=== PATIENT | male | born 1980 | race Two or more races ===

== ENCOUNTER 2020-02-13 20:29 | Inpatient (IN) | payer OTHER ==
[~2020-02-13] VITALS: Ht 193 cm; Wt 106.6 kg
[2020-02-13] MEDS ORDERED: LIDOCAINE VISCOUS 2% UD 15 ML UDC ONE (20:43)
[2020-02-13] MEDS ORDERED: MAG HYDROX/AL HYDROX/SIMETH 30 ML UDC ONE (20:43)
[2020-02-13] MEDS ORDERED: ONDANSETRON HCL/PF 4 MG/2 ML VIAL ONE ×3 (20:43→22:55)
[2020-02-13] MEDS ORDERED: MORPHINE SULFATE INJ 4 MG/ML DISP.SYRIN ONE ×2 (20:44→21:29)
--- NOTE | 2020-02-13 20:50 | NUR ---
URINE AND LABS SENT.
--- NOTE | 2020-02-13 20:55 | NUR ---
PT AAOX4. AMBULATORY C/O RUQ PAIN 10/10 SINCE THE MORNING. PT STATED HE HAD DIARRHEA AMD VOMITTED. PLACED ON MONITOR AND PULSE OX. VSS. PA AT BEDSIDE FOR EVAL. WILL CONTINUE TO MONITOR.
[2020-02-13] MEDS ORDERED: LIDOCAINE VISCOUS 2% UD 15 ML UDC MM ONE (21:00)
[2020-02-13] MEDS ORDERED: IV NS 0.9% 1,000 ML BAG IV ONE ×2 (21:00→21:30)
[2020-02-13] MEDS ORDERED: ONDANSETRON HCL/PF 4 MG/2 ML VIAL IVP ONE ×2 (21:00→21:30)
[2020-02-13] MEDS ORDERED: MORPHINE SULFATE INJ 2 MG/ML DISP.SYRIN IV ONE ×2 (21:00→21:30)
[2020-02-13] MEDS ORDERED: MAG HYDROX/AL HYDROX/SIMETH 30 ML UDC PO ONE (21:00)
[2020-02-13] MEDS ORDERED: PANTOPRAZOLE 40 MG VIAL ONE (21:29)
[2020-02-13] MEDS ORDERED: PANTOPRAZOLE 40 MG VIAL IV ONE (21:30)
[2020-02-13 21:39] LABS: BASOPHILS # (AUTO) 0.2 /CMM (0.0-0.2); BASOPHILS % (AUTO) 0.9 % (0.0-2.0); EOSINOPHILS % (AUTO) 0.3 % (0.0-6.0); HEMATOCRIT 55 % (39-51); HEMOGLOBIN 18.7 g/dL (13.5-17.5); LYMPHOCYTES # (AUTO) 2.5 /CMM (0.8-4.8); LYMPHOCYTES % (AUTO) 13.4 % (20.0-44.0); MEAN CORPUSCULAR HGB CONC 34 g/dl (31.0-36.0); MEAN CORPUSCULAR VOLUME 91 fL (80-96); MONOCYTES # (AUTO) 0.7 /CMM (0.1-1.30); MONOCYTES % (AUTO) 3.8 % (2.0-12.0); NEUTROPHILS # (AUTO) 15.1 /CMM (1.8-8.9); NEUTROPHILS % (AUTO) 81.6 % (43.0-81.0); PLATELET COUNT (AUTO) 149 /CMM (150-450); RED BLOOD CELL COUNT(AUTO) 6.05 MIL/uL (4.5-6.0); WHITE BLOOD COUNT (AUTO) 18.5 K/uL (4.3-11.0)
--- NOTE | 2020-02-13 21:41 | NUR ---
PT C/O PAIN 8/10 PAIN MEDS GIVEN. VSS.
[2020-02-13 21:58] LABS: BAND % (MANUAL) 8 % (0.0-5.0); LYMPHOCYTES % (MANUAL) 10 % (16-48); MONOCYTES % (MANUAL) 2 % (0-11.0); NEUTROPHILS % (MANUAL) 80 (42-76)
[2020-02-13 22:04] LABS: ALBUMIN 4.6 g/dL (3.4-5.0); BILIRUBIN,DIRECT 0.1 mg/dL (0.0-0.2); BILIRUBIN,TOTAL 0.9 mg/dL (0.2-1.0); CALCIUM, SERUM 9.1 mg/dL (8.5-10.1); CREATININE 0.9 mg/dL (0.6-1.3); POTASSIUM 3.2 mmol/L (3.5-5.1); TOTAL PROTEIN, SERUM 8.7 g/dL (6.4-8.2)
--- NOTE | 2020-02-13 22:05 | NUR ---
PT DENIES PAIN. VSS.
[2020-02-13 22:22] LABS: HDL CHOLESTEROL 40 mg/dL (40-60); LDL 207 mg/dL (0-99)
[2020-02-13 22:39] LABS: CHOLESTEROL 586 mg/dL (<200)
[2020-02-13 22:51] LABS: TRIGLYCERIDES 9340 mg/dL (30-150)
--- NOTE | 2020-02-13 22:55 | NUR ---
BED ASSIGNMENT MS BED 320-2
[2020-02-13] MEDS ORDERED: HYDROMORPHONE 1 MG/1 ML DISP.SYRIN ONE (22:56)
[2020-02-13] MEDS ORDERED: ONDANSETRON HCL/PF 4 MG/2 ML VIAL IV ONE (23:00)
[2020-02-13] MEDS ORDERED: HYDROMORPHONE 1 MG/1 ML DISP.SYRIN IV ONE (23:00)
[2020-02-13] MEDS ORDERED: IV D5W 1,000 ML IV PRN (23:28)
[2020-02-13] MEDS ORDERED: INSULIN REGULAR, HUMAN 100 UNIT in IV NS 0.9% 99 ML IV SCH ×2 (23:30)
[2020-02-13] MEDS ORDERED: MAG HYDROX/AL HYDROX/SIMETH 30 ML UDC PO PRN (23:30)
[2020-02-13] MEDS ORDERED: MAGNESIUM HYDROXIDE 30 ML UDC PO PRN (23:30)
[2020-02-13] MEDS ORDERED: ONDANSETRON HCL/PF 4 MG/2 ML VIAL IVP PRN (23:30)
[2020-02-13] MEDS ORDERED: Z GUARD REMEDY 2 OZ OINT TP PRN (23:30)
[2020-02-13] MEDS ORDERED: IV NS 0.9% 1,000 ML IV PRN (23:30)
[2020-02-13] MEDS ORDERED: ACETAMINOPHEN 325 MG TABLET PO PRN (23:30)
--- NOTE | 2020-02-13 23:34 | NUR ---
PER PT, "I TAKE METFORMIN 500MG PO BID, INSULIN UNKNOWNN, LISINOPRIL UNKNOW DOSE, ATORAVSTATIN UNKNOWN DOSE.
[2020-02-13] MEDS ORDERED: METF-440 PO (23:36)
--- NOTE | 2020-02-13 23:55 | NUR ---
BED ASSIGNMENT 261
[2020-02-13] MEDS ORDERED: ATOR10TA PO (23:59)
[2020-02-13] MEDS ORDERED: LISI2.5T2 PO (23:59)
[2020-02-14] VITALS (23 sets, daily range): BP systolic 109–144; BP diastolic 55–87
[2020-02-14] MEDS ORDERED: ATOR20TA PO (00:16)
[2020-02-14] MEDS ORDERED: LISI2.5T2 PO (00:16)
--- NOTE | 2020-02-14 00:16 | NUR ---
MED RECON DONE. MED INFO GIVEN BY PT.
--- NOTE | 2020-02-14 00:52 | NUR ---
BAD WORK GATHERER AT BEDSIDE.
--- NOTE | 2020-02-14 01:06 | NUR ---
REPORT GIVEN TO YONY SANCHEZ FOR ARTIE
--- NOTE | 2020-02-14 01:11 | NUR ---
ULTRA SOUND AT BEDSIDE
[2020-02-14] MEDS ORDERED: INSULIN REGULAR, HUMAN 100 UNIT/ML 3 ML VIAL ONE (01:14)
[2020-02-14] MEDS: POTASSIUM CL. PREMIX PERIPHER. 50 ML IV SCH ×4 (01:44→11:11)
--- NOTE | 2020-02-14 01:45 | NUR ---
ICU/RN-ADMITTED THIS 39 Y/O MALE FROM ER BY [facility] ACCOMPANIED BY ER STAFF PER ACLS PROTOCOL. NURSING FOCUS: INFECTION , ALTERED NUTRITION R/T DIAGNOSIS:PANCREATITIS. ROUTINE ICU ADMISSION CARE INITIATED.PT. IS AWAKE ALERT, EXPRESSIVE OF NEEDS. C/O ABDOMINAL PAIN 8-10. WILL MEDICATE PER MD ORDER.
--- NOTE | 2020-02-14 01:48 | NUR ---
PT TRANSFERED PER ACLS PROTOCOL
--- NOTE | 2020-02-14 02:00 | NUR ---
ICU/RN-TO START INSULIN DRIP AT 10 UNITS /HR, FIXED RATE. ACCU CHECK DONE-71.
[2020-02-14] MEDS: BLOOD SUGAR DIAGNOSTIC 1 EACH STRIP IN SCH ×24 (02:07→22:58)
[2020-02-14] MEDS: MORPHINE SULFATE INJ 2 MG/ML DISP.SYRIN IV PRN (02:10)
--- NOTE | 2020-02-14 02:30 | NUR ---
ICU/RN- BARLOW ACNP NOTIFIED OF CURRENT ACCU CHECK AND INSULIN DRIP. W/ ORDER TO START INSULIN DRIP ONCE ACCU CHECK IS >120. WILL CONTINUE TO MONITOR ACCUCHECK PER PROTOCOL.
[2020-02-14 02:31] LABS: APPEARANCE,URINE CLEAR (CLEAR); COLOR,URINE YELLOW (YELLOW)
[2020-02-14 02:32] LABS: BILIRUBIN,URINE MODERATE (NEGATIVE); KETONES,URINE >=80 (NEGATIVE); NITRITE, URINE NEGATIVE (NEGATIVE); PROTEIN,URINE 30 mg/dl (NEGATIVE); UGLUCOSE 250 MG/DL mg/dL (NEGATIVE); UROBILINOGEN,URINE 0.2 EU/dL (0.2)
[2020-02-14 02:33] LABS: BACTERIA,URINE Few /HPF (None Seen); BLOOD, URINE SMALL Ery/uL (NEGATIVE); LEUKOCYTE ESTERASE ,URINE NEGATIVE (NEGATIVE); SQUAMOUS EPITHELIAL CELL,UR Rare /HPF (None Seen); WBC,URINE 0-2 /HPF (0-3)
[2020-02-14] MEDS ORDERED: HYDROMORPHONE 1 MG/1 ML DISP.SYRIN ONE ×2 (02:51→06:11)
[2020-02-14] MEDS: HYDROMORPHONE INJ 0.5 MG/0.5 ML SYRINGE IV PRN ×2 (02:53→06:22)
[2020-02-14 05:17] LABS: BASOPHILS % (AUTO) 0.2 % (0.0-2.0); EOSINOPHILS % (AUTO) 0.1 % (0.0-6.0); HEMATOCRIT 46 % (39-51); HEMOGLOBIN 18.1 g/dL (13.5-17.5); LYMPHOCYTES # (AUTO) 1.4 /CMM (0.8-4.8); LYMPHOCYTES % (AUTO) 9.2 % (20.0-44.0); MEAN CORPUSCULAR HGB CONC 40 g/dl (31.0-36.0); MEAN CORPUSCULAR VOLUME 89 fL (80-96); MONOCYTES # (AUTO) 1.4 /CMM (0.1-1.30); NEUTROPHILS # (AUTO) 12.8 /CMM (1.8-8.9); NEUTROPHILS % (AUTO) 81.5 % (43.0-81.0); PLATELET COUNT (AUTO) 196 /CMM (150-450); RED BLOOD CELL COUNT(AUTO) 5.16 MIL/uL (4.5-6.0); WHITE BLOOD COUNT (AUTO) 15.7 K/uL (4.3-11.0)
--- NOTE | 2020-02-14 05:20 | NUR ---
ICU/RN-NOW ACCU CHECK-181MG/DL- INSULIN DRIP STARTED AT 10UNITS /HR. WILL CONTINUE TO MONITOR BS PER PROTOCOL.
[2020-02-14] MEDS ORDERED: INSULIN REGULAR, HUMAN 100 UNIT in IV NS 0.9% 99 ML IV SCH ×2 (05:30)
[2020-02-14 05:38] LABS: MAGNESIUM 1.6 mg/dL (1.8-2.4); POTASSIUM 3.4 mmol/L (3.5-5.1)
[2020-02-14 05:47] LABS: THYROID STIMULATING HORMONE 0.579 uIU/mL (0.358-3.74)
[2020-02-14 05:49] LABS: LYMPHOCYTES % (MANUAL) 6 % (16-48); NEUTROPHILS % (MANUAL) 89 (42-76)
[2020-02-14 05:50] LABS: MONOCYTES % (MANUAL) 5 % (0-11.0)
--- NOTE | 2020-02-14 06:22 | NUR ---
RN/ICU- AWAKE, ALERT C/O ABDOMINAL PAIN 06/16. MEDICATED W/ DILAUDID IMG SIVP. WILL REASSESS FOR PRN EFFECTIVENESS.
--- NOTE | 2020-02-14 07:00 | NUR ---
RN/ICU-PT. CONDITION GUARDED, SLEEPING. REPORT GIVEN TO LAURA LAST.
[2020-02-14 07:02] LABS: ALBUMIN 3.2 g/dL (3.4-5.0); BILIRUBIN,DIRECT 0.1 mg/dL (0.0-0.2); BILIRUBIN,TOTAL 0.8 mg/dL (0.2-1.0); CALCIUM, SERUM 7.8 mg/dL (8.5-10.1); CREATININE 0.8 mg/dL (0.6-1.3); PHOSPHORUS 2.9 mg/dL (2.5-4.9); TOTAL PROTEIN, SERUM 6.5 g/dL (6.4-8.2)
--- NOTE | 2020-02-14 07:30 | NUR ---
RN NOTES RECEIVED REPORT FROM YONY CHEMICAL MIXER, PT AAO X 4, ON ROOM AIR, NOT IN ANY DISTRESS, DENIES SOB/PAIN, SINUS TACH ON MONITOR. LEFT AC G 20 AND RIGHT AC G 20 IV ACCESS, BOTH FLUSHES WELL, SITE CLEAR. IVF D5W INFUSING AT 125 ML/HR. INSULIN DRIP WAS HOLD FOR A WHILE, BLOOD SUGAR LOW. RESTARTED WITH FIXED RATE AT 10UNITS/HR. AMBULATORY. NPO FOR NOW. POC DISCUSSED WITH PATIENT VERBALIZED UNDERSTANDING. WILL MONITOR.
[2020-02-14] MEDS: FAMOTIDINE/PF INJ 20 MG/2 ML VIAL IV SCH ×2 (08:25→17:55)
[2020-02-14] MEDS: HYDROMORPHONE 1 MG/1 ML DISP.SYRIN IV PRN ×4 (08:50→22:46)
--- NOTE | 2020-02-14 09:30 | NUR ---
RN NOTES DUE MEDS GIVEN.
[2020-02-14] MEDS: Magnesium 1GM/D5W 100ML PREMIX 100 ML IV SCH ×2 (10:51→11:11)
--- NOTE | 2020-02-14 11:10 | NUR ---
RN NOTES PATIENT REFUSED BS CHECK. DR. WANG AWARE. EXPLAINED TO PATIENT THE NEEDS. VERBALIZED UNDERSTANDING
[2020-02-14 12:34] LABS: CALCIUM, SERUM 8.1 mg/dL (8.5-10.1); CREATININE 0.7 mg/dL (0.6-1.3); POTASSIUM 3.2 mmol/L (3.5-5.1)
[2020-02-14] MEDS: INSULIN REGULAR, HUMAN 100 UNIT in IV NS 0.9% 99 ML IV PRN ×4 (13:06→23:11)
[2020-02-14] MEDS: Sodium Chloride 154 MEQ in IV 10% DEXTROSE 1,000 ML IV PRN ×2 (14:56→23:03)
--- NOTE | 2020-02-14 14:56 | NUR ---
RN NOTES D10NS IVF NOT STARTED RIGHT AWAY, JUST DELIVERED BY PHARMACY.
[2020-02-14 16:16] LABS: CALCIUM, SERUM 6.4 mg/dL (8.5-10.1); CREATININE 0.8 mg/dL (0.6-1.3); POTASSIUM 3.9 mmol/L (3.5-5.1)
--- NOTE | 2020-02-14 18:55 | NUR ---
RN NOTES ALL NEEDS MET AT THIS TIME. PT RESTING, STATED, NOT MUCH PAIN AT THIS TIME COMPARED TO EARLIER. REFUSED HIS BLOOD SUGAR CHECK AND WANTED EVERY 2 HOURS. EXPLAINED THE IMPORTANCE OF DOING EVERY HOUR AND VERBALIZED. UNDERSTANDING. DR. FELIPE CHAPIN. PAIN MANAGED BY CURRENT MEDICATION. NO OTHER SIGNIFICANT CHANGE. ENDORSED TO NEXT SHIFT FOR ARTIE. Addendum: 02/14/20 at 2004 by BERHANE MOSER RN ADDENDUM URINE OUTPUT 1800 ML
--- NOTE | 2020-02-14 19:00 | NUR ---
RECEIVED PATIENT AWAKE,ALERT,CONVERSES,COHERENT AND APPROPRIATE,NOT IN ANYDENIES ANY NUASEA DISTRESS BUT STILL C/O RUQ ABDOMINAL PAIN,+TENDERNESS. STILL ON INSULIN DRIP @ 10 UNITS(10 ML/HR) CONTINUOUS ORDERED FS/BS CHECK Q 1 HR. DENIES ANY NAUSEA NOR VOMITING.COMFORT CARE DONE/NEEDS ATTENDED.
[2020-02-14 22:31] LABS: CREATININE 0.9 mg/dL (0.6-1.3); POTASSIUM 3.7 mmol/L (3.5-5.1)
[2020-02-15] VITALS (24 sets, daily range): BP systolic 102–137; BP diastolic 45–75
--- NOTE | 2020-02-15 | NUR ---
STABLE,STILL WITH ABDOMINAL PAIN.BLOOD SUGAR STABLE,STILL ON 10 UNITS /HR INSULIN DRIP AND IV FLUID D10NSS .NOTED TO BE FEBRILE,COOLING MEASURES DONE.ROOM TEMP. KEPT COOL.
[2020-02-15] MEDS: BLOOD SUGAR DIAGNOSTIC 1 EACH STRIP IN SCH ×24 (00:03→23:21)
[2020-02-15] MEDS: HYDROMORPHONE 1 MG/1 ML DISP.SYRIN IV PRN ×3 (02:34→22:14)
[2020-02-15 04:50] LABS: BASOPHILS % (AUTO) 0.3 % (0.0-2.0); EOSINOPHILS % (AUTO) 0.7 % (0.0-6.0); HEMATOCRIT 46 % (39-51); HEMOGLOBIN 16.3 g/dL (13.5-17.5); LYMPHOCYTES # (AUTO) 1.7 /CMM (0.8-4.8); LYMPHOCYTES % (AUTO) 11.4 % (20.0-44.0); MEAN CORPUSCULAR HGB CONC 35 g/dl (31.0-36.0); MEAN CORPUSCULAR VOLUME 91 fL (80-96); MONOCYTES % (AUTO) 6.4 % (2.0-12.0); NEUTROPHILS # (AUTO) 12.2 /CMM (1.8-8.9); NEUTROPHILS % (AUTO) 81.2 % (43.0-81.0); PLATELET COUNT (AUTO) 165 /CMM (150-450); RED BLOOD CELL COUNT(AUTO) 5.06 MIL/uL (4.5-6.0)
[2020-02-15 05:58] LABS: PHOSPHORUS 2.1 mg/dL (2.5-4.9); POTASSIUM 3.5 mmol/L (3.5-5.1); TOTAL PROTEIN, SERUM 6.3 g/dL (6.4-8.2)
--- NOTE | 2020-02-15 06:00 | NUR ---
DJ=[id number],CALLED MOD. 0615 CHELI ROJAS RESPONDED,RELAYED FS OF 107. ORDERED TO CONTINUE INSULIN DRIP @ 10 UNITS/HR BUT INCREASE THE D10 NSS T0 150 ML/HR.
--- NOTE | 2020-02-15 06:30 | NUR ---
IV FLUID INCREASE TO 150 ML/HR
[2020-02-15 06:53] LABS: CALCIUM, SERUM 8.1 mg/dL (8.5-10.1)
[2020-02-15 06:54] LABS: ALBUMIN 2.7 g/dL (3.4-5.0)
--- NOTE | 2020-02-15 07:00 | NUR ---
FS= 118. STABLE,STILL WITH ON AND OFF ABDOMINAL PAIN.REPORT GIVEN TO FELIPE SANCHEZ
[2020-02-15] MEDS: Sodium Chloride 154 MEQ in IV 10% DEXTROSE 1,000 ML IV PRN ×3 (07:12→22:38)
--- NOTE | 2020-02-15 08:00 | NUR ---
FIBERGLASS ROLLER Received pt in bed aox4 on ra, vs stable pt complaining of pain 06/16 will give med as ordered, iv access patent infusing insuline and fluids as ordered, called dr. Hugo regaring bs close to and <100 orders received for d50 orders carried out will continue to monitor.
[2020-02-15] MEDS: FAMOTIDINE/PF INJ 20 MG/2 ML VIAL IV SCH ×2 (08:04→16:15)
[2020-02-15] MEDS: MORPHINE SULFATE INJ 2 MG/ML DISP.SYRIN IV PRN ×2 (08:05→16:15)
[2020-02-15] MEDS ORDERED: DEXTROSE 50%-WATER 50 ML DISP.SYRIN IVP ONE ×2 (09:30→10:30)
[2020-02-15] MEDS ORDERED: DEXTROSE 50%-WATER 50 ML DISP.SYRIN IVP STA (09:31)
[2020-02-15] MEDS: INSULIN REGULAR, HUMAN 100 UNIT in IV NS 0.9% 99 ML IV PRN ×4 (09:52→22:34)
[2020-02-15] MEDS ORDERED: Sodium Phosphate 15 MMOL in IV NS 0.9% 245 ML IV SCH (14:00)
[2020-02-15] MEDS ORDERED: ACETAMINOPHEN 650 MG/SUPP.RECT RC PRN (18:30)
--- NOTE | 2020-02-15 19:04 | NUR ---
PRINCIPAL NETWORK ARCHITECT PT DEVELOPED FEVER NOTIFIED KYLER VISCOSITY INSPECTOR, PT PUT IN ORDERS TYLENOL SUPPOSITORY GIVEN PAIN MED GIVEN PT COMPLAINING OF PAIN MOST OF THE SHIFT MANAGED BY PAIN MEDS, CALLED LAB AWAITING FOR COVID-19 TEST TO BE SENT TO ICU TO COLLECT SAMPLE. PT IV PATENT BS STABLE MOST OF THE SHIFT VS STABLE REPORT GIVEN TO PM NURSE FOR CONTINUITY OF CARE.
--- NOTE | 2020-02-15 19:45 | NUR ---
ICU/CHANNEL MAN REPORT RECEIVED FROM THE TO DAY NURSE. SEE FLOWSHEET FOR ASSESSMENT, NO SKIN ISSUES TO BE ADDRESSED. PT IS ALERT. PT IS ON ROOM AIR, WITH SATURATION AT 100%. PT'S CALL LIGHT WITHIN REACH. PT TURNED AND REPOSITIONED FOR COMFORT AND CARE.
--- NOTE | 2020-02-15 20:30 | NUR ---
ICU/INSTRUCTIONAL TECHNOLOGIST BLOOD SUGAR IS 114, PT ON IV INSULIN DRIP.
--- NOTE | 2020-02-15 21:30 | NUR ---
ICU/SWIMMING COACH OR INSTRUCTOR BLOOD SUGAR IS 125, PT ON IV INSULIN DRIP
--- NOTE | 2020-02-15 22:10 | NUR ---
ICU/GLAZIER METAL FURNITURE PT'S PAIN IS 8/10 TO ABDOMINAL AREA, NOTIFIED CHARGE NURSE WHO THEN GAVE DILAUDID 1MG IVP FOR THIS PAIN . CALL LIGHT WITHIN REACH WILL MONITOR THIS PT'S PAIN
--- NOTE | 2020-02-15 22:30 | NUR ---
ICU/COLLEGE OR UNIVERSITY BUSINESS MANAGER BLOOD SUGAR IS 108, PT ON IV INSULIN DRIP
--- NOTE | 2020-02-15 22:50 | NUR ---
RN NOTE RECEIVED PT SLEEPING IN BED IN SUPINE POSITION. NO INDICATIONS OF DISTRESS OR DISCOMFORT. PT IS ON ROOM AIR. RESPIRATIONS EVEN AND UNLABORED. CURRENTLY ON INSULIN DRIP AND TOLERATING WELL. WILL MONITOR PATIENT.
[2020-02-16] VITALS (24 sets, daily range): BP systolic 102–161; BP diastolic 49–88
[2020-02-16] MEDS: BLOOD SUGAR DIAGNOSTIC 1 EACH STRIP IN SCH ×15 (00:31→22:02)
[2020-02-16] MEDS ORDERED: DEXTROSE 50%-WATER 50 ML DISP.SYRIN IVP ONE (01:00)
[2020-02-16] MEDS: MORPHINE SULFATE INJ 2 MG/ML DISP.SYRIN IV PRN ×2 (01:37→08:29)
[2020-02-16] MEDS: HYDROMORPHONE 1 MG/1 ML DISP.SYRIN IV PRN ×6 (03:40→23:01)
[2020-02-16] MEDS: Sodium Chloride 154 MEQ in IV 10% DEXTROSE 1,000 ML IV PRN (05:09)
[2020-02-16 05:12] LABS: BASOPHILS % (AUTO) 0.2 % (0.0-2.0); EOSINOPHILS % (AUTO) 1.6 % (0.0-6.0); HEMATOCRIT 39 % (39-51); HEMOGLOBIN 13.7 g/dL (13.5-17.5); LYMPHOCYTES # (AUTO) 1.5 /CMM (0.8-4.8); LYMPHOCYTES % (AUTO) 11.8 % (20.0-44.0); MEAN CORPUSCULAR HGB CONC 35 g/dl (31.0-36.0); MEAN CORPUSCULAR VOLUME 91 fL (80-96); MONOCYTES # (AUTO) 0.8 /CMM (0.1-1.30); MONOCYTES % (AUTO) 6.2 % (2.0-12.0); NEUTROPHILS # (AUTO) 10.3 /CMM (1.8-8.9); NEUTROPHILS % (AUTO) 80.2 % (43.0-81.0); PLATELET COUNT (AUTO) 130 /CMM (150-450); RED BLOOD CELL COUNT(AUTO) 4.32 MIL/uL (4.5-6.0); WHITE BLOOD COUNT (AUTO) 12.8 K/uL (4.3-11.0)
[2020-02-16 06:05] LABS: ALBUMIN 2.2 g/dL (3.4-5.0); CALCIUM, SERUM 7.8 mg/dL (8.5-10.1); CREATININE 0.8 mg/dL (0.6-1.3); MAGNESIUM 1.8 mg/dL (1.8-2.4); POTASSIUM 2.9 mmol/L (3.5-5.1); TOTAL PROTEIN, SERUM 5.8 g/dL (6.4-8.2)
--- NOTE | 2020-02-16 07:04 | NUR ---
RN NOTE PT SLEEPING IN BED BUT EASILY AROUSABLE. RESPIRATIONS EVEN AND UNLABORED. NO INDICATIONS PF PAIN AT THIS TIME. CALL LIGHT WITHIN REACH. SAFETY MEASURES IMPLEMENTED. ENDORSED TO LAURA CAMILO FOR CONTINUATION OF CARE.
--- NOTE | 2020-02-16 07:15 | NUR ---
RN INITIAL NOTES RECEIVED PT AWAKE, A/OX4. ON ROOM AIR. NO RESPIRATORY DISTRESS NOTED. NO SOB NOTED. IV LINES IN PLACE. IVF INFUSING. ON INSULIN DRIP AT 10U/HR. BLOOD SUGAR CHECK Q2. PT COMFORTABLE. CALL LIGHT WITHIN REACH. WILL CONTINUE TO MONITOR
[2020-02-16] MEDS: FAMOTIDINE/PF INJ 20 MG/2 ML VIAL IV SCH ×2 (08:19→16:33)
[2020-02-16] MEDS: INSULIN REGULAR, HUMAN 100 UNIT in IV NS 0.9% 99 ML IV PRN ×2 (09:15)
--- NOTE | 2020-02-16 12:30 | NUR ---
RN NOTES SEEN AND EXAMINED BY DR FELIPE LEGER. AWARE OF LATEST LAB VALUES AND IMAGING STUDY. PT A/OX4. ON ROOM AIR. MD ORDERED TO STOP INSULIN DRIP, START BLOOD SUGAR CHECK ACHS AND MILD INSULIN SLIDING SCALE. START DIABETIC REGULAR DIET. MD CLEARED TO DOWNGRADE PT TO MEDSURG. WILL CONTINUE TO MONITOR
[2020-02-16] MEDS ORDERED: DEXTROSE 50%-WATER 50 ML DISP.SYRIN IV PRN (13:00)
[2020-02-16] MEDS: POTASSIUM PHOSPHATE MM 7.5 MMOL in IV NS 0.9% 100 ML IV SCH ×2 (13:44→17:30)
--- NOTE | 2020-02-16 14:40 | NUR ---
RN NOTES PT TRANSFERRED TO ROOM 111-1. PT A/OX4. ON ROOM AIR. NO RESPIRATORY DISTRESS NOTED. NO SOB NOTED. DENIES PAIN AT THIS TIME. SKIN INTACT. LAURA DASILVA TOOK OVER PT'S CARE.
--- NOTE | 2020-02-16 14:45 | NUR ---
MS/RN NOTES RECEIVED PATIENT FROM ICU A MALE 39Y/O VIA MEDICAL BED. PATIENT IS ALERT AND ORIENTED X4. NO RESPIRATORY DISTRESS NOTED. DENIES PAIN AT THIS TIME. IV ACCESS IN PLACED AT LAC # 20 AND RAC # 20 PATENT AND INTACT. BED IN LOWEST POSITION SIDE RAILS UP X2. CALL LIGHT WITHIN REACH. WILL CONTINUE TO MONITOR.
[2020-02-16] MEDS: METFORMIN 500 MG TABLET PO SCH (16:32)
[2020-02-16] MEDS: Potassium Chloride 40 MEQ in IV D5/ 0.9% NACL 1,000 ML IV PRN (17:31)
[2020-02-16] MEDS: INSULIN REGULAR, HUMAN 100 UNIT/ML 3 ML VIAL SQ PRN ×2 (17:40→21:29)
--- NOTE | 2020-02-16 18:56 | NUR ---
MS/RN CLOSING NOTES PATIENT IS AWAKE ON BED COMFORTABLY. PATIENT IS ALERT AND ORIENTED X4. NO RESPIRATORY DISTRESS NOTED. DENIES PAIN AT THIS TIME. IV ACCESS IN PLACED AT LAC # 20 AND RAC # 20 PATENT AND INTACT. BED IN LOWEST POSITION SIDE RAILS UP X2. CALL LIGHT WITHIN REACH. WILL ENDORSED TO CREDIT OFFICE MANAGER FOR ARTIE.
--- NOTE | 2020-02-16 19:00 | NUR ---
RN MS OPENING NOTES RECEIVED PATIENT IN BED AWAKE ALERT AND ORIENTED X, 4 ABLE TO MAKE NEEDS KNOWN , RESPIRATIONS EVEN AND UNLABORED WITH EQUAL RISE AND FALL OF CHEST, ORIENTED TO STAFF AND CALL LIGHT AND KEPT WITHIN REACH, SAFETY PRECAUTIONS IN PLACE, LOW BED AND LOCKED, IV SITE TO RIGHT AC #20G, AND LEFT AC #20 G INTACT AND PATENT, NO REDNESS, NO INFILTRATION PRESENT, IVF RUNNING ORDERED, ON ISOLATION PRECAUTIONS FOR RULE OUT COVID. FLUIDS OFFERED, STATES AMBULATORY AND ABLE TO AMBULATE TO RESTROOM STEADY. ALL NEEDS ATTENDED AT THIS TIME. WILL CONTINUE TO MONITOR AND ATTEND TO NEEDS.
--- NOTE | 2020-02-16 19:56 | NUR ---
rn ms notes patient complain of pain to right side abdomen, 08/16 requested for dilaudid prn dilaudid given as ordered, will continue to monitor for effectiveness.
[2020-02-16] MEDS: ATORVASTATIN 10 MG TABLET PO SCH (21:22)
--- NOTE | 2020-02-16 23:01 | NUR ---
RN NOTES PATIENT COMPLAINT OF PAIN TO RIGH SIDE ABD 5/10 REQUESTED FOR DILAUDID, VS WNL DILAUDID PRN GIVEN ORDERED, WILL CONTINUE TO MONITOR FOR EFFECTIVENESS.
[2020-02-17] VITALS: BP 151/77
--- NOTE | 2020-02-17 01:59 | NUR ---
rn ms notes offered tylenol suppository pt does not want at this time, temp.99.6
[2020-02-17] MEDS: HYDROMORPHONE 1 MG/1 ML DISP.SYRIN IV PRN ×5 (03:39→21:41)
--- NOTE | 2020-02-17 03:40 | NUR ---
rn ms notes per patient request wanted to have accucheck done 237. patient also complaint of pain to right side abd 08/16 requesting for dilaudid, dilaudid prn given as ordered will continue to monitor for effectiveness.
[2020-02-17] MEDS: Potassium Chloride 40 MEQ in IV D5/ 0.9% NACL 1,000 ML IV PRN ×2 (03:43→11:03)
[2020-02-17 05:00] VITALS: BP 149/86
--- NOTE | 2020-02-17 05:00 | NUR ---
RN MS NOTES NOTED ELEVATED TEMP OF 100.1 OFFERED PT TYLENOL PATIENT REFUSED AT THIS TIME. DESPITE EDUCATION GIVEN. ROOM KEPT COOL, LIGHT COVERS COOLING MEASURES RENDERED.
--- NOTE | 2020-02-17 06:09 | NUR ---
RN MS NOTES PATIENT COMPLAINT OF PAIN TO RIGHT SIDE ABD REQUESTED FOR DILAUDID PRN GIVEN ORDERED, VS WNL. WILL CONTINUE TO MONITOR FOR EFFECTIVENESS.
--- NOTE | 2020-02-17 06:33 | NUR ---
RN MS CLOSING NOTES PATIENT IN BED AWAKE ALERT AND ORIENTED X, 4 ABLE TO MAKE NEEDS KNOWN , RESPIRATIONS EVEN AND UNLABORED WITH EQUAL RISE AND FALL OF CHEST, CALL LIGHT KEPT WITHIN REACH, SAFETY PRECAUTIONS IN PLACE, LOW BED AND LOCKED, IV SITE TO RIGHT AC #20G, AND LEFT AC #20 G INTACT AND PATENT, NO REDNESS, NO INFILTRATION PRESENT, IVF RUNNING ORDERED, ON ISOLATION PRECAUTIONS FOR RULE OUT COVID. FLUIDS OFFERED,AMBULATORY AND ABLE TO AMBULATE TO RESTROOM STEADY. ALL NEEDS ATTENDED AT THIS TIME. WILL CONTINUE TO MONITOR AND ATTEND TO NEEDS. REMAINS COMFORTABLE AT THIS TIME, DILAUDID EFFECTIVE.
[2020-02-17 07:12] LABS: BASOPHILS # (AUTO) 0.1 /CMM (0.0-0.2); BASOPHILS % (AUTO) 0.4 % (0.0-2.0); EOSINOPHILS % (AUTO) 1.2 % (0.0-6.0); HEMATOCRIT 39 % (39-51); LYMPHOCYTES # (AUTO) 1.7 /CMM (0.8-4.8); LYMPHOCYTES % (AUTO) 13.3 % (20.0-44.0); MEAN CORPUSCULAR HGB CONC 33 g/dl (31.0-36.0); MEAN CORPUSCULAR VOLUME 91 fL (80-96); MONOCYTES # (AUTO) 1.1 /CMM (0.1-1.30); NEUTROPHILS # (AUTO) 9.7 /CMM (1.8-8.9); NEUTROPHILS % (AUTO) 76.1 % (43.0-81.0); PLATELET COUNT (AUTO) 176 /CMM (150-450); WHITE BLOOD COUNT (AUTO) 12.7 K/uL (4.3-11.0)
[2020-02-17 07:33] LABS: ALBUMIN 2.3 g/dL (3.4-5.0); BILIRUBIN,TOTAL 1.5 mg/dL (0.2-1.0); CALCIUM, SERUM 8.1 mg/dL (8.5-10.1); CREATININE 0.9 mg/dL (0.6-1.3); MAGNESIUM 1.6 mg/dL (1.8-2.4); PHOSPHORUS 2.6 mg/dL (2.5-4.9); POTASSIUM 3.5 mmol/L (3.5-5.1); TOTAL PROTEIN, SERUM 6.3 g/dL (6.4-8.2)
[2020-02-17 08:00] VITALS: BP 143/80
[2020-02-17] MEDS: FAMOTIDINE/PF INJ 20 MG/2 ML VIAL IV SCH ×2 (09:18→16:49)
[2020-02-17] MEDS: METFORMIN 500 MG TABLET PO SCH ×2 (09:18→16:49)
[2020-02-17] MEDS: LISINOPRIL (5MG) 5 MG TABLET PO SCH (09:18)
[2020-02-17] MEDS: BLOOD SUGAR DIAGNOSTIC 1 EACH STRIP IN SCH ×4 (09:43→21:08)
[2020-02-17] MEDS: INSULIN REGULAR, HUMAN 100 UNIT/ML 3 ML VIAL SQ PRN ×4 (09:46→21:36)
[2020-02-17] MEDS: Magnesium 1GM/D5W 100ML PREMIX 100 ML IV SCH ×2 (10:53→12:41)
[2020-02-17 12:00] VITALS: BP 143/80
[2020-02-17 16:00] VITALS: BP 141/74
--- NOTE | 2020-02-17 16:10 | NUR ---
PATIENT NOTED WITH FEVER 101.1. TYLENOL SUPPOSITORY OFFERED; PATIENT REFUSED AT THIS TIME.
--- NOTE | 2020-02-17 18:42 | NUR ---
PATIENT IS AWAKE, A/O X4, RESTING ON BED COMFORTABLY. NO RESPIRATORY DISTRESS NOTED. DENIES PAIN AT THIS TIME. PRN PAIN MEDS PROVIDED NEEDED DURING THE SHIFT. IV ACCESS IN PLACED AT LAC # 20 AND, RUNNING FLUID ORDERED. RAC # 20 PATENT AND INTACT HL. BED IN LOWEST POSITION SIDE RAILS UP X2. CALL LIGHT WITHIN REACH. WILL ENDORSED TO NEXT SHIFT FOR ARTIE.
--- NOTE | 2020-02-17 19:30 | NUR ---
RIDES SUPERVISOR NOTE RECEIVED PATIENT ALERT AWAKE ORIENTED X4 RESTING IN BED. BREATHING NORMAL NO SOB NOTED. NO S/S OF DISTRESS NOTED. DENIES ANY PAIN OR DISCOMFORT AT THIS TIME. IV ACCESS ON LAC G#20, RAC G#20 PATENT INTACT. NO S/S OF HYPOGLYCEMIA NOTED. SKIN WARM AND DRY TO TOUCH. ON ISOLATION FOR R/O COVID. ALL SAFETY MEASURES IN PLACE, CALL LIGHT WITHIN REACH, SIDE RAILS UP X2. WILL CONT TO MONITOR.
[2020-02-17 20:00] VITALS: BP 141/72
[2020-02-17] MEDS: ATORVASTATIN 10 MG TABLET PO SCH (21:07)
--- NOTE | 2020-02-17 21:41 | NUR ---
RN NOTE PATIENT C/O OF RIGHT SIDE ABDOMEN PAIN AND REQUESTING FOR PAIN MEDICATION, PRN DILAUDID GIVEN ORDERED. VS WNL. WILL CONT TO MONITOR FOR EFFECTIVENESS.
--- NOTE | 2020-02-17 22:00 | NUR ---
MS RN NOTE PATIENT REFUSED IV FLUIDS OFFERED X3 RISK AND BENEFITS EXPLAINED, PATIENT STILL REFUSED. WILL CONT TO OFFER AND MONITOR.
--- NOTE | 2020-02-17 22:14 | NUR ---
RN NOTE PER PATIENT DILAUDID WAS EFFECTIVE, RESTING COMFORTABLY.
[2020-02-18] VITALS: BP 139/95
[2020-02-18] MEDS: HYDROMORPHONE 1 MG/1 ML DISP.SYRIN IV PRN ×2 (01:26→04:43)
--- NOTE | 2020-02-18 01:26 | NUR ---
RN NOTE PATIENT C/O OF RIGHT SIDE ABDOMEN PAIN AND REQUESTING FOR PAIN MEDICATION, PRN DILAUDID GIVEN ORDERED. VS WNL. WILL CONT TO MONITOR FOR EFFECTIVENESS.
--- NOTE | 2020-02-18 02:06 | NUR ---
RN NOTE PER PATIENT DILAUDID WAS EFFECTIVE, RESTING COMFORTABLY.
[2020-02-18 04:00] VITALS: BP 145/91
--- NOTE | 2020-02-18 04:43 | NUR ---
RN NOTE PATIENT C/O OF RIGHT SIDE ABDOMEN PAIN AND REQUESTING FOR PAIN MEDICATION, PRN DILAUDID GIVEN ORDERED. VS WNL. WILL CONT TO MONITOR FOR EFFECTIVENESS.
--- NOTE | 2020-02-18 05:13 | NUR ---
RN NOTE PER PATIENT DILAUDID WAS EFFECTIVE, RESTING COMFORTABLY.
--- NOTE | 2020-02-18 06:26 | NUR ---
MED SURGE RN NOTE PATIENT RESTED WELL THOUGHT OUT THE NIGHT. BREATHING NORMAL NO SOB NOTED. SKIN WARM AND DRY TO TOUCH. ALL ROUTINE MEDICATIONS WERE GIVEN ALONG WITH PRN'S TOLERATED WELL. PATIENT REFUSED IV FLUIDS OFFERED X3 RISK AND BENEFITS EXPLAINED, PATIENT STILL REFUSED. ON ISOLATION PRECAUTION FOR R/O COVID. ALL SAFETY MEASURES IN PLACE, CALL LIGHT WITHIN REACH, SIDE RAILS UP X2. WILL ENDORSE TO AM NURSE FOR ARTIE.
[2020-02-18 06:29] LABS: BASOPHILS % (AUTO) 0.2 % (0.0-2.0); EOSINOPHILS % (AUTO) 1.1 % (0.0-6.0); HEMATOCRIT 38 % (39-51); HEMOGLOBIN 12.9 g/dL (13.5-17.5); LYMPHOCYTES # (AUTO) 1.4 /CMM (0.8-4.8); LYMPHOCYTES % (AUTO) 12.9 % (20.0-44.0); MEAN CORPUSCULAR HGB CONC 34 g/dl (31.0-36.0); MEAN CORPUSCULAR VOLUME 92 fL (80-96); MONOCYTES # (AUTO) 1.4 /CMM (0.1-1.30); MONOCYTES % (AUTO) 12.7 % (2.0-12.0); NEUTROPHILS # (AUTO) 8.1 /CMM (1.8-8.9); NEUTROPHILS % (AUTO) 73.1 % (43.0-81.0); PLATELET COUNT (AUTO) 193 /CMM (150-450); RED BLOOD CELL COUNT(AUTO) 4.15 MIL/uL (4.5-6.0); WHITE BLOOD COUNT (AUTO) 11.1 K/uL (4.3-11.0)
[2020-02-18 06:41] LABS: ALBUMIN 2.4 g/dL (3.4-5.0); BILIRUBIN,TOTAL 1.4 mg/dL (0.2-1.0); CALCIUM, SERUM 8.4 mg/dL (8.5-10.1); CREATININE 0.8 mg/dL (0.6-1.3); MAGNESIUM 1.9 mg/dL (1.8-2.4); POTASSIUM 3.5 mmol/L (3.5-5.1); TOTAL PROTEIN, SERUM 6.5 g/dL (6.4-8.2)
[2020-02-18] MEDS: BLOOD SUGAR DIAGNOSTIC 1 EACH STRIP IN SCH ×2 (07:30→11:28)
--- NOTE | 2020-02-18 07:30 | NUR ---
RN NOTES RECEIVED PATIENT IN BED RESTING COMFORTABLY IN MODERATE HIGH BACK REST. A/O X3. NO SIGNS OF DISTRESS NOTED AT THIS TIME. PATIENT REFUSED IV FLUIDS OFFERED X3 RISK AND BENEFITS EXPLAINED, PATIENT STILL REFUSED. ON ISOLATION PRECAUTION FOR R/O COVID. ALL SAFETY MEASURES IN PLACE, CALL LIGHT WITHIN REACH, SIDE RAILS UP X2. WILL CONTINUE TO MONITOR.
[2020-02-18 08:00] VITALS: BP 135/82
[2020-02-18] MEDS: METFORMIN 500 MG TABLET PO SCH (08:38)
[2020-02-18 08:39] VITALS: BP 135/82
[2020-02-18] MEDS: LISINOPRIL (5MG) 5 MG TABLET PO SCH (08:39)
[2020-02-18] MEDS: FAMOTIDINE/PF INJ 20 MG/2 ML VIAL IV SCH (08:40)
[2020-02-18] MEDS: INSULIN REGULAR, HUMAN 100 UNIT/ML 3 ML VIAL SQ PRN ×2 (08:48→11:28)
--- NOTE | 2020-02-18 12:50 | NUR ---
KILN REMOVER NOTES PATIENT DISCHARGED IN STABLE CONDITION. A/O X4. ABLE TO MAKE NEEDS KNOWN. V/S TAKEN, STABLE AND RECORDED. PATIENT'S IV ACCESS REMOVED AND APPLIED PRESSURE DRESSINGS. SKIN IS INTACT. NAME ARM BAND REMOVED. ALL BELONGINGS CHECKED AND SIGNED. HEALTH TEACHINGS/DISCHARGED INSTRUCTIONS GIVEN AND VERBALIZED UNDERSTANDING. PATIENT LEFT UNIT AMBULATORY WITH NO SIGNS OF ACUTE DISTRESS. PATIENT WAS ASSISTED TO THE LOBBY AND PICKED UP BY . CHARGE NURSE AWARE OF DISCHARGED.
== END 2020-02-18 12:45 | disposition home or self-care (01) | DRG 439 ==
LOC: ER 20:33 → ICU 02-14 00:22 → MEDSG1 02-16 14:21
PROVIDERS: ADMIT Nurse Practitioner Acute Care; ATTEND Family Medicine
DX: K85.90 Acute pancreatitis without necrosis or infection, unspecified (principal); E87.2 Acidosis; E87.1 Hypo-osmolality and hyponatremia; R65.10 Systemic inflammatory response syndrome (SIRS) of non-infectious origin without acute organ dysfunction; E78.1 Pure hyperglyceridemia; E87.6 Hypokalemia; D69.6 Thrombocytopenia, unspecified; E11.65 Type 2 diabetes mellitus with hyperglycemia; I10 Essential (primary) hypertension; E86.9 Volume depletion, unspecified; E83.39 Other disorders of phosphorus metabolism; R74.0 Nonspecific elevation of levels of transaminase and lactic acid dehydrogenase [LDH]; D72.829 Elevated white blood cell count, unspecified; Z79.84 Long term (current) use of oral hypoglycemic drugs; K86.1 Other chronic pancreatitis
CPT/HCPCS: 36415; 71045-TC; 76700-TC; 80048-TC; 80053-TC; 80061-TC; 80076-TC; 81000-TC; 82962-TC; 83605-TC; 83690-TC; 83735-TC; 84100-TC; 84443-TC; 84478-TC; 85025-TC; 85730-TC; 87040-TC; 87081-TC; 87086-TC; A9563; C9113; G0378; G0480; J1170; J1815; J2270; J2405; J3475; J3480; J3490; J7030; J7042; J7050; J7070